=== PATIENT | female | born 1955 | race Caucasian/White ===

== ENCOUNTER 2018-01-03 16:36 | Emergency (ER) | payer OTHER ==
[~2018-01-03] VITALS: Ht 165.1 cm; Wt 113.6 kg
[2018-01-03 17:03] LABS: GLUCOSE,POINT OF CARE 206 MG/DL (70-110)
[2018-01-03] MEDS ORDERED: DICL4100G TP (17:12)
[2018-01-03] MEDS ORDERED: DOCU250C91 PO (17:12)
[2018-01-03] MEDS ORDERED: GABA-531 PO (17:12)
[2018-01-03] MEDS ORDERED: KETO45GE2 TP (17:12)
[2018-01-03] MEDS ORDERED: VITAD1000 PO (17:12)
[2018-01-03] MEDS ORDERED: AMLO2.5T PO (17:12)
[2018-01-03] MEDS ORDERED: METF500T6 PO (17:12)
[2018-01-03] MEDS ORDERED: CALC-1038 PO (17:12)
[2018-01-03] MEDS ORDERED: SIMV-259 PO (17:12)
[2018-01-03] MEDS ORDERED: LISI-662 PO (17:12)
[2018-01-03] MEDS ORDERED: KETOROLAC TROMETHAMINE 30 MG/ML VIAL IM ONE (18:45)
[2018-01-03] MEDS ORDERED: LIDOCAINE HCL 5% TRANSDERMAL PATCH TD ONE (18:45)
[2018-01-03] MEDS ORDERED: METHOCARBAMOL 500 MG TABLET PO ONE (18:45)
[2018-01-03] MEDS ORDERED: CALC-916 PO (18:46)
[2018-01-03 19:30] VITALS: BP 127/79
== END 2018-01-03 19:56 | disposition home or self-care (01) ==
LOC: EMS 16:40
DX: S92.515A Nondisplaced fracture of proximal phalanx of left lesser toe(s), initial encounter for closed fracture (principal); M25.552 Pain in left hip; M25.562 Pain in left knee; M77.32 Calcaneal spur, left foot; E11.9 Type 2 diabetes mellitus without complications; E78.00 Pure hypercholesterolemia, unspecified; I10 Essential (primary) hypertension; Z88.8 Allergy status to other drugs, medicaments and biological substances; Z79.899 Other long term (current) drug therapy; Z90.49 Acquired absence of other specified parts of digestive tract; Z98.890 Other specified postprocedural states; W18.40XA Slipping, tripping and stumbling without falling, unspecified, initial encounter; Y93.89 Activity, other specified; Y92.89 Other specified places as the place of occurrence of the external cause; Y99.8 Other external cause status
CPT/HCPCS: 29505; 73503; 73562; 73630; 82962; 96372; 99284; J1885

== ENCOUNTER 2018-02-25 13:52 | Emergency (ER) | payer OTHER ==
[~2018-02-25] VITALS: Ht 165.1 cm; Wt 119.1 kg
[~2018-02-25 13:52] MED LIST: AMLO2.5T3 PO; CALC-916 PO; DICL4100G TP; DOCU250C91 PO; GABA-531 PO; KETO45GE2 TP; LISI-662 PO; METF-960 PO; SIMV-259 PO; VITAD1000 PO
[2018-02-25] MEDS ORDERED: PANT40TA25 PO (14:09)
[2018-02-25] MEDS ORDERED: IBUP-2071 PO (14:09)
[2018-02-25 14:14] LABS: GLUCOSE,POINT OF CARE 148 MG/DL (70-110)
[2018-02-25] MEDS ORDERED: IBUPROFEN 800 MG TABLET PO ONE (14:45)
[2018-02-25] MEDS ORDERED: AmLODIPine BESYLATE 5 MG TABLET PO ONE (14:45)
[2018-02-25] MEDS ORDERED: LISINOPRIL 10 MG TABLET PO ONE (14:45)
[2018-02-25 15:56] VITALS: BP 145/75
== END 2018-02-25 16:11 | disposition home or self-care (01) ==
LOC: EMS 13:53
DX: I10 Essential (primary) hypertension (principal); H60.92 Unspecified otitis externa, left ear; E11.9 Type 2 diabetes mellitus without complications; E78.00 Pure hypercholesterolemia, unspecified; Z90.49 Acquired absence of other specified parts of digestive tract; Z88.8 Allergy status to other drugs, medicaments and biological substances; Z79.899 Other long term (current) drug therapy; Z79.84 Long term (current) use of oral hypoglycemic drugs
CPT/HCPCS: 99284